=== PATIENT | female | born 1945 | race Two or more races ===

== ENCOUNTER 2024-12-22 16:16 | Emergency (ER) | payer OTHER ==
[~2024-12-22] VITALS: Ht 167.6 cm; Wt 69.9 kg
[2024-12-22] MEDS ORDERED: SYNTHROID137 MCG PO (16:32)
[2024-12-22] MEDS ORDERED: TOPROL XL50 M1 (16:32)
[2024-12-22] MEDS ORDERED: ELIQUIS2.5 MG (16:33)
[2024-12-22 17:11] LABS: BASO % 0.3 % (0.1-1.2); EOS # 0.04 (0.04-0.54); EOS % 0.6 % (0.7-7.0); LYMPH # 1.46 (1.18-3.74); LYMPH % 22.0 % (19.3-53.1); MEAN PLATELET VOLUME 11.90 fl (9.4-12.4); MONO # 0.67 (0.24-0.82); MONO % 10.1 % (4.7-12.5); NEUT # 4.44 (1.56-6.13); NEUT % 66.8 % (34.0-71.1); RED CELL DISTRIBUTION WIDTH 13.7 % (11.6-14.4)
[2024-12-22 17:39] LABS: ALT/SGPT 9.0 U/L (12-78); AST/SGOT 33.0 U/L (15-37); BILIRUBIN TOTAL 1.2 mg/dL (0.3-1.2); BUN CREA RATIO 25.0 (7.0-25.0); CREATININE SERUM 1.15 mg/dL (0.55-1.02); GFR 45.4; GLOBULINA 4.1 G/DL (2.4-3.5); GLUCOSE FASTING 160.0 mg/dL (65-100); OSMOLALITY SERUM 283.0 MOSM/KG (275-295)
[2024-12-22 18:15] LABS: ABG PH 7.452 (7.35-7.45); ABG PO2 82.6 mmHg (80-100); BICARBONATE 32.2 mmol/l (23-25)
[2024-12-22 18:16] LABS: o2 21 %
[2024-12-22 19:09] LABS: URINE APPEARANCE Clear; URINE BILIRRUBIN Negative (NEGATIVE); URINE BLOOD Negative; URINE COLOR Yellow; URINE GLUCOSE Negative (NEGATIVE); URINE KETONE Negative (NEGATIVE); URINE LEUKOCYTE Negative; URINE NITRATE Negative; URINE PROTEIN Negative (NEGATIVE); URINE UROBILINOGEN 0.2 E.U./dl
[2024-12-22 19:14] LABS: URINE BACTERIA 52.7 uL (0.0-1933); URINE CAST 1.46 uL (0.0-1.40); URINE RBC 3.0 uL (0.0-20.8); URINE WBC 2.6 uL (0.0-23.2)
[2024-12-22 19:19] LABS: URINE EPITHELIAL CELLS 0.9 uL (0.0-38.8)
[2024-12-22] MEDS ORDERED: ORPHENADRINE CITRATE 30 MG/ML AMPUL IM ONE (22:15)
[2024-12-23] MEDS ORDERED: 0.9 % SODIUM CHLORIDE 1,000 ML IV SCH (09:00)
== END 2024-12-22 23:00 | disposition home or self-care (01) ==
LOC: ER 16:16
PROVIDERS: Emergency Medicine
DX: K29.70 Gastritis, unspecified, without bleeding (principal); R11.10 Vomiting, unspecified; I10 Essential (primary) hypertension; E03.8 Other specified hypothyroidism; Z88.0 Allergy status to penicillin; Z88.6 Allergy status to analgesic agent
CPT/HCPCS: 36415; 51702; 71045; 82803; 93005; 96365; 96372; 99283; J2360; J3490